=== PATIENT | female | born 1975 | race Caucasian/White ===

== ENCOUNTER 2020-01-11 08:43 | Outpatient (CLI) | payer BC, SELFPAY ==
[2020-01-13 23:23] LABS: Patient Race White; SARS-CoV-2 RNA Undetected (Undetected); SARS-CoV-2 Specimen Source Nasal
== END 2020-01-11 09:03 ==
LOC: NCHCO 08:45
PROVIDERS: PCP Nurse Practitioner Family; Visit Provider Nurse Practitioner Family
DX: R11.2 Nausea with vomiting, unspecified (principal); R53.83 Other fatigue; R05 Cough
CPT/HCPCS: U0003

== ENCOUNTER 2020-02-08 02:10 | Outpatient (CLI) | payer BC, SELFPAY ==
[2020-02-11 23:24] LABS: Patient Race White; SARS-CoV-2 RNA Undetected (Undetected); SARS-CoV-2 Specimen Source Nasal
== END 2020-02-08 02:30 ==
PROVIDERS: PCP Nurse Practitioner Family; Visit Provider Nurse Practitioner Family
DX: R05 Cough (principal); R53.83 Other fatigue; R11.2 Nausea with vomiting, unspecified
CPT/HCPCS: U0003

== ENCOUNTER 2020-06-20 07:41 | Outpatient (CLI) | payer BC, SELFPAY ==
[2020-06-21 14:35] LABS: COVID-19 RT-PCR UVMMC Result Negative (Negative)
== END 2020-06-20 07:42 | disposition home or self-care (01) ==
LOC: LBO 07:41
PROVIDERS: PCP Nurse Practitioner Family; Visit Provider Nurse Practitioner Family
DX: Z20.822 Contact with and (suspected) exposure to COVID-19 (principal)
CPT/HCPCS: U0003

== ENCOUNTER 2020-09-05 09:01 | Outpatient (REF) | payer BC, SELFPAY ==
--- NOTE | 2020-09-05 09:30 | PAPFT_PTH ---
PATIENT: Rosalva Hill LOC: [facility] U#:[id number] AGE/SX: 45/F ROOM: RE09/05/[address]: Maura Edwards APRN : 1975 BED: DIS: 09/05/2020 SPEC #: [id number] RECD: 09/05/20 13:10 STATUS: DEANN REJoseluis #: [id number] FRANSICO: 09/05/20 09:[address]: Maura Edwards DEPT: [facility] Cytology RECD BY: Eli Madison Tissues: 1 - CX/ENDOCX FOR PAP SMEARS Procedures: PAP THIN PREP/UVM Screening HPV DNA PROBE Comments: [id number]
== END 2020-09-05 09:02 | disposition home or self-care (01) ==
LOC: LBN 09:01
PROVIDERS: PCP Nurse Practitioner Family; Visit Provider Nurse Practitioner Family
DX: Z12.4 Encounter for screening for malignant neoplasm of cervix (principal); Z11.51 Encounter for screening for human papillomavirus (HPV); Z00.00 Encounter for general adult medical examination without abnormal findings
CPT/HCPCS: 88142; 87624

== ENCOUNTER 2020-09-17 03:29 | Outpatient (CLI) | payer BC, SELFPAY ==
[2020-09-17 08:34] LABS: Abs Immature Grans 0.01 10^3/uL (0.0-0.06); Absolute Basophil Count 0.03 10^3/uL (0.0-0.2); Absolute Eosinophil Count 0.16 10^3/uL (0.0-0.7); Absolute Lymphocyte Count 1.45 10^3/uL (1.2-3.4); Absolute Monocyte Count 0.27 10^3/uL (0.1-0.8); Absolute Neutrophil Count 1.92 10^3/uL (1.2-6.7); Basophils % 0.8; Eosinophils % 4.2; HCT 37.8 % (36.0-46.0); HGB 12.7 g/dL (11.2-15.7); Immature Grans % 0.3; Lymphocytes % 37.8; MCH 32.4 pg (27.0-33.0); MCHC 33.6 % (32.0-36.0); MCV 96.4 fL (80-95); Neutrophils % 49.9; Nucleated RBC 0 %; Platelet Count 227 10^3/uL (130-400); RBC 3.92 10^6/uL (3.93-5.22); RDW 11.8 % (11.7-14.6); RDW-SD 41.4 fL; WBC 3.84 10^3/uL (4.4-10.8)
[2020-09-17 09:33] LABS: Anion Gap 7.4 mmol/L (3-11); BUN 8 mg/dL (7-18); CO2 30.6 mmol/L (21.0-32.0); CREATININE 0.7 mg/dL (0.55-1.02); Calcium 9.1 mg/dL (8.5-10.1); Calculated LDL 95 mg/dL (<100); Chloride 102 mmol/L (98-107); Cholesterol 187 mg/dL (<200); Glucose 90 mg/dL (74-106); HDL Cholesterol 84 mg/dL (40-60); Potassium 4.4 mmol/L (3.5-5.1); Sodium 140 mmol/L (136-145); Triglyceride 42 mg/dL (<150)
== END 2020-09-17 03:30 | disposition home or self-care (01) ==
LOC: LBO 03:30
PROVIDERS: PCP Nurse Practitioner Family; Visit Provider Nurse Practitioner Family
DX: Z13.1 Encounter for screening for diabetes mellitus (principal); Z13.220 Encounter for screening for lipoid disorders; Z86.2 Personal history of diseases of the blood and blood-forming organs and certain disorders involving the immune mechanism; R03.0 Elevated blood-pressure reading, without diagnosis of hypertension; Z00.00 Encounter for general adult medical examination without abnormal findings
CPT/HCPCS: 36415; 80048; 80061; 85025

== ENCOUNTER 2021-01-02 02:21 | Outpatient (CLI) | payer BC, SELFPAY ==
[2021-01-02 14:58] LABS: Abs Immature Grans 0.03 10^3/uL (0.0-0.06); Absolute Basophil Count 0.02 10^3/uL (0.0-0.2); Absolute Eosinophil Count 0.08 10^3/uL (0.0-0.7); Absolute Monocyte Count 0.54 10^3/uL (0.1-0.8); Absolute Neutrophil Count 5.85 10^3/uL (1.2-6.7); Basophils % 0.2; HCT 38.4 % (36.0-46.0); Immature Grans % 0.4; Lymphocytes % 21.6; MCH 32.3 pg (27.0-33.0); MCHC 33.9 % (32.0-36.0); MCV 95.3 fL (80-95); MPV 10.5 fL (8.0-11.0); Monocytes % 6.5; Neutrophils % 70.3; Nucleated RBC 0 %; Platelet Count 262 10^3/uL (130-400); RBC 4.03 10^6/uL (3.93-5.22); RDW 11.6 % (11.7-14.6); RDW-SD 40.7 fL; WBC 8.32 10^3/uL (4.4-10.8)
[2021-01-05 12:20] LABS: Lyme Ab w Rflx to Lyme Confirm Negative (Negative)
[2021-01-05 21:27] LABS: Anaplasma phagocytophilum Negative (Negative); B. miyamotoi PCR Negative (Negative); Babesia divergens/MO-1 Negative (Negative); Babesia duncani Negative (Negative); Babesia microti Negative (Negative); Ehrlichia chaffeensis Negative (Negative); Ehrlichia ewingii/canis Negative (Negative); Ehrlichia muris eauclairensis Negative (Negative)
== END 2021-01-02 02:22 | disposition home or self-care (01) ==
LOC: LBO 02:21
PROVIDERS: PCP Nurse Practitioner Family; Visit Provider Nurse Practitioner Family
DX: M25.59 Pain in other specified joint; D72.819 Decreased white blood cell count, unspecified
CPT/HCPCS: 36415; 87798; 85025; 86618

== ENCOUNTER 2022-03-11 09:32 | Outpatient (CLI) | payer BC, SELFPAY ==
--- NOTE | 2022-03-11 09:30 | RT.EKG_ITS ---
APPROVED REPORT Exam: Resting ECG Reason for Exam: HTN baseline new dx Patient Location: O HR:61 bpm ECG Measurements Heart Rate 61 AXIS NC 132 P 4 QRSd 87 QRS 47 QT 404 T 38 QTc 407 Conclusion Sinus rhythm...normal P axis, V-rate 50- 99 Normal Electrocardiogram
== END 2022-03-11 09:33 | disposition home or self-care (01) ==
LOC: DI.KIM 09:33
PROVIDERS: PCP Nurse Practitioner Family; Visit Provider Nurse Practitioner Family
DX: I10 Essential (primary) hypertension (principal)
CPT/HCPCS: 93010

== ENCOUNTER 2022-03-17 02:37 | Outpatient (CLI) | payer BC, SELFPAY ==
[2022-03-17 14:59] LABS: Anion Gap 5.5 mmol/L (3-11); BUN 10 mg/dL (7-18); CO2 30.5 mmol/L (21.0-32.0); CREATININE 0.8 mg/dL (0.55-1.02); Calcium 9.1 mg/dL (8.5-10.1); Chloride 101 mmol/L (98-107); Glucose 101 mg/dL (74-106); Potassium 3.6 mmol/L (3.5-5.1); Sodium 137 mmol/L (136-145)
[2022-03-18 10:10] LABS: HIV-1/2 Ag & Ab Screen Negative (Negative)
[2022-03-18 10:59] LABS: Hepatitis C Ab w Rflx HCV PCR Negative (Negative)
== END 2022-03-17 02:38 | disposition home or self-care (01) ==
LOC: LBO 02:37
PROVIDERS: PCP Nurse Practitioner Family; Referring Provider Nurse Practitioner Family; Visit Provider Nurse Practitioner Family
DX: I10 Essential (primary) hypertension (principal); Z13.1 Encounter for screening for diabetes mellitus; Z11.4 Encounter for screening for human immunodeficiency virus [HIV]; Z11.59 Encounter for screening for other viral diseases
CPT/HCPCS: 36415; 80048; 86803; 87389; 84443

== ENCOUNTER → 2023-03-18 13:25 | Outpatient (CLI) | payer BC, SELFPAY ==
--- NOTE | 2023-03-18 12:00 | DI.RAD_ITS ---
Exam(s) XR LUMBAR SPINE COMP W FLEX/EX EXAM: XR LUMBAR SPINE COMP W FLEX/EX CLINICAL HISTORY: eval vert,spacing,lordosis, back pain, dorsalgia, lumbosacral radiculopathy. TECHNIQUE: 2D digital imaging was performed. COMPARISON: No exams were available for comparison FINDINGS: Seven views No evidence of fracture, listhesis, nor pars interarticularis defects. Disc spaces exhibit normal he ight. There appears to be some hypertrophy of right facet joints at L4-5 level. Other facets unrema rkable. Sacroiliac joints unremarkable. Bone density normal. No osseous lesions. IMPRESSION: Facet joint degenerative changes at L4-5. No other significant findings in the lumbosacral spinal co lumn. DATA REPOSITORY: RADIATION DOSE DELIVERED:
== END ==
PROVIDERS: PCP Nurse Practitioner Family; Visit Provider Student in an Organized Health Care Education/Training Program
DX: M46.96 Unspecified inflammatory spondylopathy, lumbar region (principal)
CPT/HCPCS: 72114

== ENCOUNTER → 2023-05-05 03:13 | Outpatient (CLI) | payer BC, SELFPAY ==
--- NOTE | 2023-05-05 07:00 | DI.MRI_ITS ---
Exam(s) MR LUMBAR SPINE WO EXAM: MR LUMBAR SPINE WO CLINICAL HISTORY: eval DJD,? disc pathology or herniation,back pain,l3 radiculopathy,fam h/o. TECHNIQUE: Multiplanar multisequence MRI of the Lumbar spine was performed. COMPARISON: CR XR LUMBAR SPINE COMP W FLEX/EX from 03/18/2023 FINDINGS: Bones: The last intervertebral disc space is designated the L5/S1 level for the numbering purpose of this ex amination. The vertebral body heights are well maintained. Alignment: Unremarkable. The marrow signal characteristics are unremarkable. Cord: The conus tip ends at the T12 level. It is of normal size and signal intensity. T12-L1: No focal disc herniation is present. No central spinal canal stenosis.No neural foraminal st enosis. L1-2: No focal disc herniation is present. No central spinal canal stenosis.No neural foraminal sten osis. L2-3:Small endplate osteophytes. Minimal disc bulging. Small focal central disc protrusion without visible nerve root impingement. No central spinal canal stenosis.No neural foraminal stenosis. L3-4: No focal disc herniation is present. No central spinal canal stenosis.No neural foraminal steno sis. L4-5:Disc height is normal.Small central disc protrusion without visible nerve root impingement. Mild facet degenerative changes and ligamentous hypertrophy. No central spinal canal stenosis.No neural f oraminal stenosis. L5-S1: No focal disc herniation is present. No central spinal canal stenosis.No neural foraminal st enosis. The visualized SI joints and sacrum are unremarkable. Soft tissues: The paraspinal soft tissues are unremarkable. IMPRESSION: Small central disc protrusions at L2-3 and L4-5 without visible nerve root impingement. DATA REPOSITORY:
== END ==
PROVIDERS: PCP Student in an Organized Health Care Education/Training Program; Visit Provider Student in an Organized Health Care Education/Training Program
DX: M51.26 Other intervertebral disc displacement, lumbar region (principal)
CPT/HCPCS: 72148

== ENCOUNTER 2023-09-06 15:14 | Outpatient (REF) | payer BC, SELFPAY | END 2023-09-06 15:15 | disposition home or self-care (01) | LOC: LBN 15:14 | PROVIDERS: PCP Student in an Organized Health Care Education/Training Program; Referring Provider Family Medicine; Visit Provider Family Medicine | DX: R30.0 Dysuria (principal) | CPT/HCPCS: 87086 ==

== ENCOUNTER 2023-10-07 08:18 | Day surgery (SDC) | payer BC, SELFPAY ==
--- NOTE | 2023-10-06 22:51 | COLE_ITS ---
Date of service: 10/07/23 Time of Service: 10:16 Colonoscopy Report Date of procedure: 10/07/23 Pre-op diagnosis general: crc screening Post-op diagnosis procedure note: same Surgeon: Pamela Glez Anesthesia Type: General:No Airway Estimated blood loss (mL): 0 Pathology: none sent Complications: None Disposition: same day Prep: Miralax/Dulcolax Retraction Time: 7 Procedure Description: After informed consent was obtained the patient was taken to the procedure room and placed in a left decubitous position. Monitors were applied and a time out was done. The patients name, date of , procedure, allergies to medications and metal in their body was reviewed. The patient was then sedated. Once sedated and comfortable a rectal exam was done. External exam was normal. Internal exam revealed a normal sphincter tone and no palpable masses. The scope was then introduced and retrofelexed. No internal hemorrhoids were identified. The scope was then advanced to the cecum w/out difficulty. The TI and appendiceal orifice were identified. The scope was then slowly retracted over 7 minutes back into the rectum. There are no polyps/AVM's or diverticula. The mucosa is pink and healthy w/ a normal vascular patttern. The scope was removed and the patient was woken up and taken back to Same day surgery in stable condition. The patient tolerated the procedure well and there were no immediate complications. Follow up: The patient should follow up in 10 years unless they develop changes in bowel habits or other new gastrointestinal complaints. [place] Bowel Prep [place] Bowel Prep Right Colon: 3 Left Colon: 3 Transverse Colon: 3 Total Score: 9
--- NOTE | 2023-10-06 22:51 | PDOC.DSDIS_ITS ---
Date of service: 10/07/23 Time of Service: 10:19 Discharge Plan Disposition Patient Disposition: Home Condition: Good Discharge Details Reason For Visit: CRC screening Attending Provider: Pamela Glez Primary Care Provider: Jaclyn Lai Home Meds and New Rx's Prescriptions: Continued multivitamin [One Daily Multivitamin] Tablet 1 tab PO DAILY Nexplanon 68 mg implant 1 implant subdermal ONCE Rx Instructions: as a single dose albuterol sulfate [ProAir HFA] 90 mcg/actuation HFA aerosol inhaler 1 puff IH Q4H PRN (Reason: shortness of breath or wheezing) Qty: 8.5 0RF Rx Instructions: Bronchospasm--dispense with SPACER PLEASE (updated 03/16/2019 RX). acetaminophen [Tylenol] 325 mg capsule 325 mg PO ONCE PRN trazodone 100 mg tablet See Rx Instructions .ROUTE .COMPLEX Qty: 90 1RF Dose Instruction: TAKE ONE TABLET BY MOUTH AT BEDTIME NEEDED FOR SLEEP Rx Instructions: TAKE ONE TABLET BY MOUTH AT BEDTIME NEEDED FOR SLEEP metoprolol succinate 25 mg tablet extended release 24 hr See Rx Instructions .ROUTE .COMPLEX Qty: 90 1RF Dose Instruction: TAKE ONE TABLET BY MOUTH EVERY DAY Rx Instructions: TAKE ONE TABLET BY MOUTH EVERY DAY celecoxib 200 mg capsule 200 mg PO DAILY Discontinued polyethylene glycol 3350 17 gram/dose powder 238 g PO ONCE Qty: 238 0RF Rx Instructions: Colonoscopy Bowel Prep- Per Instructions bisacodyl [Dulcolax (bisacodyl)] 5 mg tablet,delayed release (DR/EC) 5 mg PO ONCE Qty: 4 0RF Discharge Instructions Additional Instructions: DSU Colonoscopy Post- Op Instructions Instructions for Everyone who is given Anesthesia: For your safety, please do the following for the next twenty-four (24) hours: *Do Not operate a motor vehicle (car, truck, motorcycle, etc.) *Do Not drink alcoholic beverages or use any recreational drugs for the first 24 hours or while taking pain medications. The medications in your body may have a reaction that can be dangerous. *Do Not make any important decisions or sign any important papers. Findings: normal Follow up: Repeat in 10 yrs time 1. No lifting over 20 pounds or strenuous activity for the first 24 hours after your procedure. After 24 hours there are no restrictions on your activity but you may feel fatigued for a few days. 2. After you arrive home you may have a light meal and return to your normal diet as you can tolerate it without feeling sick to your stomach. 3. You may have a bloated, gaseous feeling in your belly (abdomen) after a colonoscopy. Passing gas and belching will help. Walking or lying down on your left side with your knees flexed may relieve the discomfort. Call the office at [phone] (Office) or [phone] (Hospital) right away if you notice any of the following: a.Vomiting of blood or ?coffee ground stools?. b.Rectal bleeding 1Tbsp, blood clots or continuous bleeding. c.Severe belly (abdominal) pain. d.A hard distended belly (abdomen) and an inability to pass gas. 4. Please don?t expect to have a normal BM (bowel movement) for 2-3 days after your procedure. 5. If there are questions regarding the findings of your procedure, please contact your doctor 6. If you are unable to contact your doctor with a problem, contact the hospital at [phone]. 7. Continue all your regular medications unless directed otherwise. I understand the above instructions and have no questions. Signature of Patient or Adult Escort Name of Responsible Adult Escort Signature of Nurse Date/Time Activity:: see above Diet:: see above Discharge Orders Discharge Orders: Discharge Order (Routine); Ordered 10/07/23 Ordered By: Pamela Glez DS: Diagnosis Discharge Diagnosis (1) Essential hypertension: Status: Acute (2) Rosacea: Status: Acute (3) Eating disorder in remission: (4) Screening for malignant neoplasm of colon performed: Status: Acute Asessment and Plan: The patient is seen and examined after their colonoscopy.? The patient has been able to pass gas.? They are not having abdominal pain.? They have been able to tolerate liquids and a snack.? They do not have any nausea or vomiting.? They are not having any chest pain or shortness of breath.??? They are not having any rectal bleeding. Their vital signs have been stable-see nursing notes. We discussed findings during their colonoscopy, and any biopsies that were done/polyps that were removed. The patient will be sent a letter with any biopsy results, and when to repeat the colonoscopy.-see discharge instructions. Patient was given explicit instructions to follow-up regarding colonoscopy-refer to discharge instructions.? We reviewed resumption of medications. Patient verbalized understanding and discharged in stable and satisfactory condition- See nursing notes.
[2023-10-07 08:43] VITALS: BP 123/96; PULSE 68; RESP 16; TEMP 36.8; O2SAT 100
[2023-10-07] MEDS: Lactated Ringers 1,000 ML 80 ML IV (08:46)
--- NOTE | 2023-10-07 09:07 | W.ANESPRE ---
General Info Date of Service Date Performed: 10/07/23 Height: 5 ft 0.5 in Weight: 53.07 kg Body Mass Index (BMI): 22.4 Surgical Procedure: Operation Date: 10/07/23 09:05 Proposed Procedure Side Surgeon p Colonoscopy Pamela Glez, DO Actual Procedure Side Surgeon p Colonoscopy Not Applicable Pamela Glez, DO Pre-Op Diagnosis Post-Op Diagnosis Colon screening Meds Allergies and Home Medications Allergies Allergy/AdvReac Type Severity Reaction Status Date / Time No Known Drug Allergies Allergy none Verified 10/07/23 08:31 Home Medication ?Medication ?Instructions ?Recorded albuterol sulfate 90 mcg/actuation 1 puff inhalation Q4H PRN 03/16/19 aerosol inhaler (ProAir HFA) shortness of breath or wheezing #8.5 grams multivitamin (One Daily 1 tab PO DAILY 09/05/20 Multivitamin tablet) acetaminophen 325 mg capsule 325 mg PO ONCE PRN 09/30/21 (Tylenol) etonogestrel 68 mg subdermal 1 implant subdermal ONCE 03/30/22 implant (Nexplanon) metoprolol succinate 25 mg See Rx Instructions .Route 05/17/23 tablet,extended release 24 hr .COMPLEX #90 tabs trazodone 100 mg tablet See Rx Instructions .Route 05/17/23 .COMPLEX #90 tabs celecoxib 200 mg capsule 200 mg PO DAILY 07/04/23 Current Visit Medications: Current Medications Generic Name Dose Route Start Last Admin Trade Name Freq PRN Reason Stop Dose Admin Hyoscyamine Sulfate 0.125 mg 10/07/23 10:23 Hyoscyamine 0.125 Mg Sl/Oral/Chew SL 11/06/23 10:22 DIRECTED PRN Ringer's Solution 1,000 mls @ 80 mls/hr 10/07/23 06:00 10/07/23 08:46 IV 10/07/23 23:59 80 mls/hr INFUSION MICHELL Administration IV Miscellaneous Supplies 1 each 10/07/23 06:00 Iv Access IV 10/07/23 23:59 DIRECTED MICHELL Ondansetron HCl 4 mg 10/07/23 10:23 Ondansetron 4 Mg/2 Ml Vial IVP 11/06/23 10:22 Q4H PRN PRN Nausea / Vomiting Sodium Chloride 0 ml 10/07/23 06:00 Normal Saline Flush 10 Ml Syr IV 10/07/23 23:59 PRN PRN Sodium Chloride 0 ml 10/07/23 06:00 Normal Saline 10 Ml Vial IJ 10/07/23 23:59 DIRECTED PRN Sterile Water 0 ml 10/07/23 06:00 Water,Injection,Sterile 10 Ml Vial IJ 10/07/23 23:59 DIRECTED PRN PFSH Active Problems Active Problems: Problem Status Onset Code Screening for malignant neoplasm of colon performed Acute Z12.11 Other spondylosis with radiculopathy, lumbar region Acute M47.26 Right lumbar radiculopathy Acute M54.16 Retrolisthesis of vertebrae Acute M43.10 Primary osteoarthritis of right hip Acute M16.11 Protrusion of lumbar intervertebral disc Acute M51.26 Low back pain Acute M54.5 Lumbosacral radiculopathy at L3 Acute M54.17 Rosacea Acute L71.9 Bunion of great toe of left foot Acute M21.612 Presence of subdermal contraceptive implant Acute 03/30/22 Z97.5 Essential hypertension Acute I10 Insomnia Acute G47.00 Medical History Medical History Urinary tract infection Family history of degenerative joint disease Joint pain Anxiety and depression Eating disorder in remission (10/25/13) Pneumonia Surgical History Surgical History Status post dilation and curettage for retained placenta Tobacco Smoking/Tobacco Use Status: Never Passive smoking exposure: No Second hand exposure: Yes Alcohol Alcohol Intake: current Alcohol intake frequency: 0-2 drinks per day Alcohol type: wine Substance Use Substance use type: does not use Vital Signs and Lab Results Vital Signs Most Recent Vital Signs in EMR: Most Recent Vital Signs Temp Pulse Resp BP Pulse Ox 36.8 C 68 16 123/96 H 100 10/07/23 08:43 10/07/23 08:43 10/07/23 08:43 10/07/23 08:43 10/07/23 08:43 Point of Care Results Point of Care Results: POC- Test(urine) Negative 10/07/23 08:31 Lab Results Blood Type / Crossmatch: No Data to Display Complete Blood Count: No Data to Display Complete Metabolic Panel: No Data to Display Liver Function Panel: No Data to Display Coagulation Panel: No Data to Display Cardiac Panel: No Data to Display Arterial Blood Gas: No Data to Display Venous Blood Gas: No Data to Display Pancreas Panel: No Data to Display Thyroid Panel: No Data to Display Infectious Disease: No Data to Display Blood Cultures: No Data to Display Toxicology Panel: No Data to Display Panel: No Data to Display Imaging and Studies Imaging and Studies Study information below may be from another EMR and interpreted by another provider. Please see original notes in EMR for more complete details. EKG Summary: 03/11/22: Exam: Resting ECG Reason for Exam: HTN baseline new dx Patient Location: O HR:61 bpm ECG Measurements Heart Rate 61 AXIS UT 132 P 4 QRSd 87 QRS 47 QT 404 T38 QTc 407 Conclusion Sinus rhythm...normal P axis, V-rate 50- 99 Normal Electrocardiogram Stress Test Summary: 12/15/16: mpressions: - No chest pain with exercise. - Negative stress test after maximal exercise. Summary: 1. Stress ECG conclusions: The stress ECG is negative. Driver treadmill score: 14. This score predicts a low risk of cardiac events. 2. Stress: The target heart rate was achieved. The heart rate response to stress is normal. There is a normal resting blood pressure with an appropriate response to stress. The patient experienced no chest pain during stress. Exercise capacity is above normal for age. Anesthesia Assessment and Plan Anesthesia History Personal History: No History of Anesthesia Complications Family History: No Family History of Anesthesia Complications Exercise Tolerance Exercise Tolerance: Metabolic Equivalents>4 Pertinent Negatives Pertinent Negatives: No Major Cardiovascular Symptoms or Complaints and No Major Pulmonary Symptoms or Complaints Cardiac & Pulmonary Exam Cardiac Exam: Normal S1/S2 Heart Sounds Pulmonary Exam: Clear Bilateral Breath Sounds Implantable Cardiac Device Does patient have a Pacemaker or an ICD?: No Airway Exam Known Difficult Airway: No Mallampati Class: 1 Mouth Opening: Normal (> 3cm) Thyromental Distance: Greater than 3 cm Neck Range of Motion: Full ROM Neck Circumference: Normal Teeth Condition: Normal Dentition ASA Classification ASA Score: ASA 2 Emergency Case?: No NPO Status NPO Status: NPO Clears >2 hours, Solids >8 hours Status Status: Negative HCG Anesthesia Plan Resuscitation Status: Full Code Anesthesia Technique: General Anesthesia Airway Planned: Natural Airway Monitors Used: Standard Monitors
[2023-10-07 09:10] VITALS: BMI 22.4
[2023-10-07 09:52] VITALS: BP 132/86; PULSE 61; RESP 16; TEMP 37.1; O2SAT 100
--- NOTE | 2023-10-07 10:13 | W.ANESPOSTOP ---
Postoperative Evaluation Date, Time and Location Date Performed: 10/07/23 Time Performed: 10:14 Patient Location: Day Surgery Unit Vital Signs Most Recent Imported Vital Signs: Most Recent Vital Signs Temp Pulse Resp BP Pulse Ox 37.1 C 61 16 132/86 100 10/07/23 09:52 10/07/23 09:52 10/07/23 09:52 10/07/23 09:52 10/07/23 09:52 Pain Score Most Recent Pain Score: Most Recent Pain Score Pain Level 0 10/07/23 09:52 Assessment Mental Status: Awake (Alert & Oriented to Patient Baseline) Airway and Respiratory Function: Patent airway with normal (patient baseline) respiratory exam Cardiovascular Function: Hemodynamically Stable Hydration Status: Adequately Hydrated Nausea & Vomiting: No Nausea or Vomiting Pain: Pt. Denies Any Pain Peripheral Nerve Block: Patient did not receive a nerve block
[2023-10-07 10:22] VITALS: BP 132/79; PULSE 79; RESP 16; TEMP 37.6; O2SAT 100
== END 2023-10-07 10:40 | disposition home or self-care (01) ==
LOC: SUR 08:19
PROVIDERS: PCP Student in an Organized Health Care Education/Training Program; Visit Provider Surgery
PROC: 0DJD8ZZ Inspection of Lower Intestinal Tract, Via Natural or Artificial Opening Endoscopic (ICD-10-PCS; CPT 45378; principal; 2023-10-07 09:00)
DX: I10 Essential (primary) hypertension (principal); Z12.11 Encounter for screening for malignant neoplasm of colon
CPT/HCPCS: 45378; 81025; J2001; J2704

== ENCOUNTER 2024-10-09 01:49 | Outpatient (CLI) | payer OTHER, SELFPAY ==
--- NOTE | 2024-10-09 06:45 | DI.RAD_ITS ---
Exam(s) XR FOOT LT COMPLETE EXAM: XR FOOT LT COMPLETE CLINICAL HISTORY: LEFT FOOT PAIN,m79.672. TECHNIQUE: 2D digital imaging was performed of the left foot. Three images were obtained. AP, oblique and lateral views were obtained. COMPARISON: No exams were available for comparison FINDINGS: BONES: No acute fracture is present. No bony destructive lesion is seen. JOINTS: No dislocation present. There is mild narrowing of the 1st MTP joint. The joint spaces are otherwise well maintained. SOFT TISSUE: Normal. IMPRESSION: Mild 1st MTP joint space narrowing. DATA REPOSITORY: RADIATION DOSE DELIVERED:
== END 2024-10-09 02:09 ==
PROVIDERS: PCP Student in an Organized Health Care Education/Training Program; Visit Provider Podiatrist
DX: M79.672 Pain in left foot (principal)
CPT/HCPCS: 73630

== ENCOUNTER 2024-11-23 09:02 | Outpatient (CLI) | payer OTHER, SELFPAY ==
[2024-11-23 07:22] LABS: HCT 37.4 % (36.0-46.0); HGB 13.1 g/dL (11.2-15.7); MCH 32.3 pg (27.0-33.0); MCHC 35.0 % (32.0-36.0); MCV 92 fL (80-95); MPV 9.8 fL (8.0-11.0); Platelet Count 195 10^3/uL (130-400); RBC 4.06 10^6/uL (3.93-5.22); RDW 11.0 % (11.7-14.6); RDW-SD 37.6 fL; WBC 3.68 10^3/uL (4.4-10.8)
[2024-11-23 09:00] LABS: ALT 22 U/L (14-59); AST 21 U/L (15-37); Albumin 4.3 g/dL (3.4-5.0); Alkaline Phosphatase 51 U/L (46-116); Anion Gap 9.1 mmol/L (3-11); BUN 7 mg/dL (7-18); Bilirubin, Total 0.4 mg/dL (0.2-1.0); CO2 28.9 mmol/L (21.0-32.0); Calcium 9.2 mg/dL (8.5-10.1); Chloride 95 mmol/L (98-107); Estimated GFR 105.95 (mL/min/1.73m2); Glucose 91 mg/dL (74-106); Potassium 4.4 mmol/L (3.5-5.1); Sodium 133 mmol/L (136-145); TSH (W/Ref FT4) 1.42 uIU/mL (0.36-3.74); Total Protein 7.2 g/dL (6.4-8.2)
== END 2024-11-23 09:03 | disposition home or self-care (01) ==
LOC: LBO 09:03
PROVIDERS: PCP Student in an Organized Health Care Education/Training Program; Visit Provider Family Medicine
DX: R53.83 Other fatigue (principal)
CPT/HCPCS: 36415; 80053; 85027; 84443

== ENCOUNTER → 2025-02-28 01:02 | Outpatient (CLI) | payer OTHER, SELFPAY ==
--- NOTE | 2025-02-28 07:45 | DI.DEXA_ITS ---
Exam(s) XR DEXA BONE DENSITY W/WO KYLER EXAM: XR DEXA BONE DENSITY W/WO KYLER CLINICAL HISTORY: Evidence of bone thinning on xrays,disorder bone density,m85.872 TECHNIQUE: Routine DEXA evaluation of the lumbar spine, hip, or forearm. COMPARISON: No exams were available for comparison FINDINGS: Performed on a Hologic unit. Lateral image: No compression fracture evident. Lumbar Spine total T-score: -0.8 which is within normal range. Hip total T-score:-0.7 which is in normal range. Independent reading at the level of the femoral neck yields T-score of -1.0 which is in normal range. Forearm total T-score: -0.1 which is within normal range. IMPRESSION: Bone mineral density measures in the normal range. Fracture risk is low. Note: Any spine fracture indicates 5x risk for subsequent spine fracture and 2x risk for subsequent hip fracture. World Health Organization criteria for BMD interpretation classify patients: Normal...... T- Score at or above -1.0 Osteopenic... T- Score between -1.0 and -2.5 Osteoporosis... T-Score at or below -2.5
== END ==
LOC: DI 01:02
PROVIDERS: PCP Family Medicine; Visit Provider Family Medicine
DX: M85.872 Other specified disorders of bone density and structure, left ankle and foot (principal)
CPT/HCPCS: 77080